=== PATIENT | male | born 1980 ===

== ENCOUNTER 2017-09-17 12:43 | Observation (INO) | payer OTHER ==
[2013-12-17 14:17] VITALS: Ht 175.3 cm; Wt 99.8 kg
[~2017-09-17] VITALS: Ht 175.3 cm; Wt 99.8 kg
[~2017-09-17 12:43] MED LIST changes: -ALB6.7R INH; -CHOL10005 PO; -FLU44R INH; -FLUO-177 PO; -FLUO40CA76 PO; -GABA-549 PO; -GABA-551 PO; -HYDR-4228 PO; -HYDR50CA47 PO; -IBUP800T37 PO; -MULT-964 PO; -NALO4SPR; -NOR25 PO; -NORT50CA40 PO; -OMEP-125 PO; -PANT40SU3 PO; -PER; -PRAZ1CAP26 PO; -SENN-203 PO; -SUMA100T33 PO; -TRAM-627 PO; -TRAZ50TA34 PO; -VERA180T53 PO; -[UNRECOGNIZED DRUG - CODE] TP
[2017-09-17] MEDS ORDERED: NS(*) 0.9% 1000 ML BAG 1,000 ML IV ONE (12:46)
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
[2017-09-17] MEDS ORDERED: DIPHTH/TETANUS/ACEL. PERTUSSIS IM ONE (12:50)
[2017-09-17] MEDS ORDERED: fentaNYL CITR 100 MCG/2 ML AMP IVP ONE (12:55)
--- NOTE | 2017-09-17 12:57 | EKG ---
FACILITY: [facility] [place] PATIENT NAME: TENNILLE POLLACK : [id number] MR: [id number] V: [id number] EXAM DATE: ORDERING PHYSICIAN: ABDOUL BROOKS TECHNOLOGIST: PLACIDO Test Reason : PARTIAL TRAUMA Blood Pressure : / mmHG Vent. Rate : 125 BPM Atrial Rate : 125 BPM P-R Int : 134 ms QRS Dur : 086 ms QT Int : 322 ms P-R-T Axes : 062 077 039 degrees QTc Int : 464 ms Sinus tachycardia Otherwise normal ECG No previous ECGs available Confirmed by CHANI BELTRAN ([id number]) on 09/17/2017 7:13:14 PM Referred By: RAMY Confirmed By:CHANI BELTRAN
[2017-09-17] MEDS ORDERED: LORazepam 2 MG/ML VIAL IVP ONE (13:00)
[2017-09-17 13:04] LABS: PLATELET COUNT, AUTOMATED 402 K/uL (150-450)
[2017-09-17 13:08] LABS: INR 1.03
[2017-09-17] MEDS ORDERED: WATER STERILE 10 ML VIAL IM ONLY ONE (13:10)
[2017-09-17] MEDS ORDERED: NS 0.9% 25 ML BAG 50 ML ONE (13:10)
[2017-09-17] MEDS ORDERED: IOPAMIDOL 76% 100 ML INFUS BTL 0 ML ONE (13:10)
[2017-09-17] MEDS ORDERED: OLANZapine 10 MG VIAL IM ONLY ONE (13:10)
[2017-09-17] MEDS ORDERED: IOPAMIDOL 76% 75 ML INFUS BTL 75 ML ONE (13:13)
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
--- NOTE | 2017-09-17 14:30 | RADIOLOGY IMAGING REPORT ---
FACILITY: [facility] PATIENT NAME: Chavez Kelly : 1980 MR: [id number] V: [id number] EXAM DATE: ORDERING PHYSICIAN: ABDOUL BROOKS TECHNOLOGIST: Location: [facility] [place] Patient: Chavez Kelly : 1980 Visit/Account:[id number] Date of Sevice: 09/17/2017 EXAMINATION: Left foot radiographs 3 views HISTORY: Trauma. COMPARISON: None. FINDINGS: AP, lateral and oblique views of the left foot are obtained. Bones: No acute fracture or dislocation. Joint spaces: Negative. Hardware: None. Alignment: Normal. Soft tissues: Negative. IMPRESSION: No acute left foot fracture. Report Dictated By: Felicia Daugherty MD at 09/17/2017 2:23 PM Report E-Signed By: Felicia Daugherty MD at 09/17/2017 2:24 PM WSN:[id number]
--- NOTE | 2017-09-17 14:30 | RADIOLOGY IMAGING REPORT ---
FACILITY: [facility] [place] PATIENT NAME: Chavez Kelly : 1980 MR: [id number] V: [id number] EXAM DATE: ORDERING PHYSICIAN: ABDOUL BROOKS TECHNOLOGIST: Location: [facility] Patient: Chavez Kelly : 1980 Visit/Account:[id number] Date of Sevice: 09/17/2017 EXAMINATION: Left ankle radiographs 3 views HISTORY: Trauma. COMPARISON: None. FINDINGS: AP, lateral and oblique views of the left ankle are obtained. Bones: There is no acute fracture or dislocation. There is a corticated ossicle below the distal fib kathy. Joint spaces: Negative. Hardware: None. Alignment: Normal. Soft tissues: Negative. IMPRESSION: No acute left ankle fracture. Report Dictated By: Felicia Daugherty MD at 09/17/2017 2:24 PM Report E-Signed By: Felicia Daugherty MD at 09/17/2017 2:26 PM WSN:[id number]
--- NOTE | 2017-09-17 14:31 | RADIOLOGY IMAGING REPORT ---
[place] [facility] [place]: Chavez Kelly : 1980 MR: [id number] V: [id number] EXAM DATE: ORDERING PHYSICIAN: ABDOUL BROOKS TECHNOLOGIST: Location: Patient: Chavez Kelly : 1980 Visit/Account:[id number] Date of Sevice: 09/17/2017 EXAMINATION: Right elbow radiographs 3 views HISTORY: Trauma. COMPARISON: None. FINDINGS: AP, lateral and oblique views of the right elbow were obtained. Bones: No acute fracture or dislocation. Joint spaces: Negative. Hardware: None. Alignment: Normal. Soft tissues: Negative. Effusion: None. IMPRESSION: No acute fracture or effusion of the right elbow. Report Dictated By: Felicia Daugherty MD at 09/17/2017 2:26 PM Report E-Signed By: Felicia Daugherty MD at 09/17/2017 2:27 PM WSN:[id number]
--- NOTE | 2017-09-17 14:45 | RADIOLOGY IMAGING REPORT ---
FACILITY: [facility] [place] PATIENT NAME: Chavez Kelly : 1980 MR: [id number] V: [id number] EXAM DATE: ORDERING PHYSICIAN: ABDOUL BROOKS TECHNOLOGIST: Location: [facility] Patient: Chavez Kelly : 1980 Visit/Account:[id number] Date of Sevice: 09/17/2017 EXAMINATION: CT chest with IV contrast CT abdomen with IV contrast CT pelvis with IV contrast HISTORY: Trauma. TECHNIQUE: Spiral scan was obtained through the chest, abdomen and pelvis during injection of nonio annie iodinated intravenous contrast. Sagittal and coronal reformatted images are also submitted. One of the following dose optimization techniques was utilized in the performance of this exam: Autom ated exposure control; adjustment of the mA and/or kV according to the patient's size; or use of an i terative reconstruction technique. Specific details can be referenced in the facility's radiology C T exam operational policy. CONTRAST: 100 mL of IV Isovue-370. COMPARISON: None. FINDINGS: CT THORAX: Lungs / pleura: Lungs show no consolidation, pleural effusion or pneumothorax. No discrete nodule fo rosendo interstitial opacity. Airways are clear. Mediastinum / debbie: No abnormal density or enlarged lymph nodes. Heart / pericardium: Normal size without pericardial effusion. Vessels: Aorta shows no aneurysm or dissection. The pulmonary arteries are grossly normal. Musculoskeletal / Body wall: Bony structures show no acute fracture. No discrete or displaced rib fr actures. Vertebral bodies show no compression. Sternum is intact. No aggressive bony lesion. The ches t wall shows no enlarged axillary lymph nodes or masses. CT ABDOMEN AND PELVIS: Liver / biliary: No focal abnormality or perihepatic fluid. Gallbladder and biliary system is unremar kable. Pancreas: Negative. Spleen: No focal abnormality or perisplenic fluid. Adrenal glands: Negative. Kidneys: No stones or hydronephrosis. The superior aspect the right kidney does show a 1.3 cm hypoden se lesion with Hounsfield of 37. Kidneys show no other focal abnormality. Pelvic structures: Negative. Bowel: Visualized gastrointestinal tract is within normal limits. The appendix is not visualized may been surgically removed. Stomach is unremarkable. Peritoneum / retroperitoneum / mesenteries: No free air, free fluid, fluid collections or areas of in flammation. Small umbilical hernia containing fat. Vessels: Negative. Musculoskeletal / Body wall: No fractures or aggressive bony lesions. Lymph node assessment: Negative. IMPRESSION: 1. No indication of acute abnormality or traumatic injury to the chest, abdomen or pelvis. 2. The superior aspect the right kidney does show 1.3 cm hypodense lesion which does not appear to be a simple cyst. Suggest a nonemergent follow-up MRI of the kidneys, without and with contrast, for fu rther evaluation as this is indeterminant and to exclude a solid renal lesion. Report Dictated By: Bartolome Andrade at 09/17/2017 2:29 PM Report E-Signed By: Bartolome Andrade at 09/17/2017 2:41 PM WSN:[id number]
--- NOTE | 2017-09-17 15:04 | RADIOLOGY IMAGING REPORT ---
FACILITY: [facility] PATIENT NAME: Chavez Kelly : 1980 MR: [id number] V: [id number] EXAM DATE: ORDERING PHYSICIAN: ABDOUL BROOKS TECHNOLOGIST: Location: [facility] [place] Patient: Chavez Kelly : 1980 Visit/Account:[id number] Date of Sevice: 09/17/2017 CHEST SINGLE AP Indication: Trauma.. Comparison: 05/19/2008. Findings: Cardiomediastinal silhouette and pulmonary vessels within normal limits. There is no focal infiltrate or lobar consolidation. No pneumothorax or pleural effusion. No nodule. Upper abdomen is unremarkable. No acute bony abnormality. IMPRESSION: 1. No acute cardiopulmonary process. No indication of thoracic trauma. Report Dictated By: Bartolome Andrade at 09/17/2017 2:58 PM Report E-Signed By: Bartolome Andrade at 09/17/2017 3:00 PM WSN:[id number]
[2017-09-17] MEDS ORDERED: ONDANSETRON 4 MG/2 ML VIAL IVP PRN (15:20)
[2017-09-17] MEDS ORDERED: NS(*) 0.9% 1000 ML BAG 1,000 ML IV PRN (15:20)
[2017-09-17 15:32] VITALS: BP 120/72
[2017-09-17] MEDS ORDERED: NALO4SPR (16:37)
[2017-09-17] MEDS ORDERED: NORT50CA40 PO (16:37)
[2017-09-17] MEDS ORDERED: [UNRECOGNIZED DRUG - CODE] TP (16:37)
[2017-09-17] MEDS ORDERED: GABA-551 PO ×2 (16:37)
[2017-09-17] MEDS ORDERED: VERA180T53 PO (16:37)
[2017-09-17] MEDS ORDERED: PRAZ1CAP26 PO (16:37)
[2017-09-17] MEDS ORDERED: MULT-964 PO (16:37)
[2017-09-17] MEDS ORDERED: SUMA100T33 PO (16:37)
[2017-09-17] MEDS ORDERED: IBUP800T37 PO (16:37)
[2017-09-17] MEDS ORDERED: SENN-203 PO (16:37)
[2017-09-17] MEDS ORDERED: TRAZ50TA34 PO (16:37)
[2017-09-17] MEDS ORDERED: FLUO-177 PO (16:37)
[2017-09-17] MEDS ORDERED: HYDR-4228 PO (16:37)
[2017-09-17] MEDS ORDERED: CHOL10005 PO (16:37)
[2017-09-17] MEDS ORDERED: OMEP-125 PO (16:37)
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
[2017-09-17] MEDS ORDERED: ACETAMINOPHEN 325 MG TAB PO PRN (17:55)
[2017-09-17] MEDS ORDERED: PROMETHAZINE 25 MG/ML 1 ML AMP IVP PRN (17:55)
[2017-09-17] MEDS ORDERED: FLUSH 10 ML SYR IVP PRN (17:55)
[2017-09-17] MEDS ORDERED: IBUPROFEN 600 MG TAB PO PRN (17:55)
[2017-09-17] MEDS ORDERED: MAGNESIUM HYDROXIDE* 30ML UDCP PO PRN (17:55)
[2017-09-17] MEDS ORDERED: hydrOXYzine 25 MG TAB PO PRN (18:00)
[2017-09-17] MEDS ORDERED: SUMAtriptan SUCC 25MG TAB PO PRN (18:00)
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
[2017-09-17] MEDS: HYDROmorphone HCL 2 MG/ML SDV IVP PRN (18:22)
[2017-09-17 19:07] VITALS: BP 123/62
[2017-09-17] MEDS ORDERED: GABAPENTIN 300 MG CAP PO SCH (21:00)
[2017-09-17] MEDS ORDERED: PRAZOSIN HCL 1 MG CAP PO PRN (21:00)
[2017-09-17] MEDS ORDERED: NORTRIPTYLINE HCL 25 MG CAP PO SCH (21:00)
[2017-09-17] MEDS: HYDROCORTISONE TP SCH (21:00)
[2017-09-17] MEDS: DOCUSATE SODIUM 100 MG CAP PO SCH (21:00)
[2017-09-17] MEDS ORDERED: traZODone HCL 50 MG TAB PO SCH (21:00)
[2017-09-17] MEDS: SENNOSIDES 8.6 MG TAB PO SCH (21:28)
[2017-09-17] MEDS: FAMOTIDINE 20 MG TAB PO SCH (21:29)
[2017-09-17 23:24] VITALS: BP 123/65
[2017-09-18 02:26] VITALS: BP 122/67
[2017-09-18 08:07] VITALS: BP 126/88
--- NOTE | 2017-09-18 08:16 | Short(Outpt) Discharge Summary ---
Discharge Summary Reason for Hosp/Final Diag: (1) Chest wall trauma Status: Acute Hospital Course & Plan: 09/17/17: X-rays and CT chest/abd/pelvis reviewed. No signs of acute trauma on any of these studies. His pain is due to external soft tissue trauma/contusion. Will observe on Med/Surg overnight with plans for transfer to [facility] in am. Will have him on 1:1. Regular diet, pain meds, nausea meds, pepcid for GI prophylaxis, hold on lovenox as DVT/PE risk is low and he will be ambulatory, will use SCDs for VTE prophylaxis. Will start bowel regimen. 09/18/17: NO issues overnight. He had a bowel movement overnight. He reports that it required some straining so will keep him on a bowel regimen. Exam is unremarkable, no other injuries detected. Will d/c from Med/Surg and transfer him to [facility] for the rest of his mental health hold due to suicidal ideation. No other recommendations for [facility] other than bowel regimen. He can eat as desired and perform all activities without restrictions. (2) Contusion of left ankle or foot Status: Acute Departure Discharge to: [facility] Discharge Instructions Home Meds Reported Medications Hydrocortisone (HYDRO SKIN) 118 Ml Lotion, 118 ML TP BID for RASH 09/17/17 Ibuprofen (IBUPROFEN) 800 Mg Tablet, 1 TAB PO QID Y for PAIN, TAB 09/17/17 Fluoxetine Hcl (FLUOXETINE HCL) 20 Mg Capsule, 2 CAP PO QDAY, CAPSULE 09/17/17 Verapamil Hcl (VERAPAMIL ER) 180 Mg Tablet.er, 180 MG PO DAILY 09/17/17 Sennosides (SENNOSIDES) 8.6 Mg Tablet, 8.6 MG PO BID 09/17/17 Omeprazole (OMEPRAZOLE) 20 Mg Capsule.dr, 1 CAP PO QDAY, CAP 09/17/17 Sumatriptan Succinate (SUMATRIPTAN SUCCINATE) 100 Mg Tablet, 100 MG PO BID Y for MIGRAINE No more than 2 doses in a 7 day period 09/17/17 Multivitamin With Minerals (MULTIVITAMINS WITH MINERALS) 1 Each Tablet, 1 EACH PO QDAY 09/17/17 Hydroxyzine Hcl (HYDROXYZINE HCL) 50 Mg Tablet, 50 MG PO TID Y for ANXIETY 09/17/17 Cholecalciferol (Vitamin D3) (VITAMIN D3) 1,000 Unit Tablet, 1000 UNIT PO, TAB Takes with food 09/17/17 Prazosin Hcl (PRAZOSIN HCL) 1 Mg Capsule, 3 CAP PO for nightmares, CAPSULE 09/17/17 Trazodone Hcl (TRAZODONE HCL) 50 Mg Tablet, 150 MG PO QHS 09/17/17 Nortriptyline Hcl (NORTRIPTYLINE HCL) 50 Mg Capsule, 50 MG PO HS, CAPSULE 09/17/17 Gabapentin (GABAPENTIN) 400 Mg Capsule, 1200 MG PO QHS, CAPSULE 09/17/17 Gabapentin (GABAPENTIN) 400 Mg Capsule, 400 MG PO QAM, CAPSULE 09/17/17 Naloxone HCl (Narcan) 4 Mg/Actuation [place] 09/17/17 Diet: Regular Activity: As Tolerated CHANI CHONG MD Sep 18, 2017 08:16
[2017-09-18] MEDS: DOCUSATE SODIUM 100 MG CAP PO SCH (08:27)
[2017-09-18] MEDS: FAMOTIDINE 20 MG TAB PO SCH (08:27)
[2017-09-18] MEDS: SENNOSIDES 8.6 MG TAB PO SCH (08:27)
[2017-09-18] MEDS: HYDROCORTISONE TP SCH (08:29)
[2017-09-18] MEDS ORDERED: NON-FORMULARY MEDICATION MISCELL (Gabapentin 400 MG) PO SCH (09:00)
[2017-09-18] MEDS ORDERED: VERAPAMIL HCL SR 180 MG TABCR PO SCH (09:00)
[2017-09-18] MEDS ORDERED: GABAPENTIN(*) 300 MG CAP 300 MG, GABAPENTIN(*) 100 MG CAP 100 MG PO SCH (09:00)
[2017-09-18] MEDS ORDERED: FLUoxetine HCL 20 MG CAP PO SCH (09:00)
[2017-09-18] MEDS ORDERED: MULTIVITAMINS TAB PO SCH (09:00)
[2017-09-18] MEDS ORDERED: CHOLECALCIFEROL 1000 UNIT TAB PO SCH (09:00)
[2017-09-18] MEDS ORDERED: POLYETHYLENE GLYCOL 17 GM PKT PO SCH (09:00)
[2017-09-18 11:28] VITALS: BP 127/78
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
[2017-09-18] MEDS: HYDROmorphone HCL 2 MG/ML SDV IVP PRN (11:56)
== END 2017-09-18 13:20 ==
LOC: ER 12:48 → MED 14:34 → INTOOBSV 14:34
PROVIDERS: ADMIT Surgery; ATTEND Surgery
DX: S50.311A Abrasion of right elbow, initial encounter (principal); S80.212A Abrasion, left knee, initial encounter; S80.211A Abrasion, right knee, initial encounter; R45.851 Suicidal ideations; S29.9XXA Unspecified injury of thorax, initial encounter; Y04.8XXA Assault by other bodily force, initial encounter; S90.02XA Contusion of left ankle, initial encounter
CPT/HCPCS: 36415; 71045; 71260; 73080; 73610; 73630; 74177; 80305; 80320; 80329; 81001; 82550; 83605; 83690; 85025; 85610; 85730; 86850; 86900; 86901; 90471; 90715; 93005; 96372; 96374; 96375; 99284; A4216; G0378; J1170; J2060; J3010; J3490; J7030; Q9967; 82040; 82247; 82310; 82374; 82435; 82565; 82947; 84075; 84132; 84155; 84295; 84450; 84460; 84520

== ENCOUNTER → 2017-09-17 | Outpatient (CLI) | payer OTHER ==
[2013-12-17 14:17] VITALS: BMI 31.8
[~2017-09-17] MED LIST: ALB6.7R INH; ASCO-180 PO; CHOL10005 PO; CLO5 PO; DIPH-466 PO; FLU44R INH; FLUO-177 PO; FLUO40CA76 PO; GABA-549 PO; GABA-551 PO; HYDR-4228 PO; HYDR50CA47 PO; IBU600 PO; IBUP800T37 PO; LORA-639 PO; MULT-964 PO; NALO4SPR; NO RTN MEDS; NOR25 PO; NORT50CA40 PO; OMEP-125 PO; PANT40SU3 PO; PER; PER PO; PRAZ1CAP26 PO; SENN-203 PO; SUMA100T33 PO; TOBROD OP; TRAM-627 PO; TRAZ50TA34 PO; VERA180T53 PO; ZINC30CA2 PO; [UNRECOGNIZED DRUG - CODE] TP; [UNRECOGNIZED DRUG - OTHER]
== END ==
LOC: AMB 12:12
PROVIDERS: ATTEND Nurse Practitioner
DX: R07.1 Chest pain on breathing (principal); R45.851 Suicidal ideations; Y04.0XXA Assault by unarmed brawl or fight, initial encounter; Y92.039 Unspecified place in apartment as the place of occurrence of the external cause
CPT/HCPCS: A0425; A0427

== ENCOUNTER 2017-09-18 13:30 | Inpatient (IN) | payer OTHER ==
[2013-12-17 14:17] VITALS: Ht 182.9 cm; Wt 99.8 kg
[~2017-09-18] VITALS: Ht 182.9 cm; Wt 99.8 kg
[~2017-09-18 13:30] MED LIST changes: +CHOL10005 PO; +FLUO-177 PO; +GABA-551 PO; +HYDR-4228 PO; +IBUP800T37 PO; +MULT-964 PO; +NALO4SPR; +NORT50CA40 PO; +OMEP-125 PO; +PRAZ1CAP26 PO; +SENN-203 PO; +SUMA100T33 PO; +TRAZ50TA34 PO; +VERA180T53 PO; +[UNRECOGNIZED DRUG - CODE] TP
[2017-09-18 13:57] VITALS: BP 131/80
[2017-09-18] MEDS ORDERED: hydrOXYzine PAMOATE 25 MG CAP PO PRN (14:15)
[2017-09-18] MEDS ORDERED: ACETAMINOPHEN 325 MG TAB PO PRN ×2 (14:15→15:10)
[2017-09-18] MEDS ORDERED: SUMAtriptan SUCC 25MG TAB PO PRN (14:20)
[2017-09-18] MEDS ORDERED: PRAZOSIN HCL 1 MG CAP PO PRN (14:20)
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
[2017-09-18] MEDS ORDERED: ALBUTEROL 2.5 MG/3 ML NEB NEB PRN (14:50)
[2017-09-18] MEDS: traMADol 50 MG TAB PO PRN ×2 (17:29→23:27)
[2017-09-18] MEDS: ALBUTEROL 2.5 MG/3 ML NEB NEB SCH (17:37)
[2017-09-18] MEDS: FLUTICASONE PROP 44 MCG INH INH SCH (17:37)
--- NOTE | 2017-09-18 19:19 | RADIOLOGY IMAGING REPORT ---
FACILITY: [facility] PATIENT NAME: Chavez Kelly : 1980 MR: [id number] V: [id number] EXAM DATE: ORDERING PHYSICIAN: CAITLYN POLANCO TECHNOLOGIST: Location: [facility] [place] Patient: Chavez Kelly : 1980 Visit/Account:[id number] Date of Sevice: 09/18/2017 ANKLE 3 VIEW MIN LEFT, FOOT 3 VIEW LEFT History: Left foot and ankle pain. Comparison study: None. Findings: Left foot: There is no fracture involving the left foot. The metatarsals are intact. Left ankle: There is soft tissue swelling over the left ankle. There is no finding of an acute fractu re. The talar dome is intact. A well-corticated density inferior to the fibula could be related to pr ior injury. There is developmental variation of the navicular bone. IMPRESSION: 1. No findings of a fracture. 2. Soft tissue stone over the lateral malleolus. There are well-corticated densities inferior to the fibula that are likely the result of a previous injury. Report Dictated By: August Carter MD at 09/18/2017 7:14 PM Report E-Signed By: August Carter MD at 09/18/2017 7:15 PM [id number]
--- NOTE | 2017-09-18 19:19 | RADIOLOGY IMAGING REPORT ---
FACILITY: [facility] [place] PATIENT NAME: Chavez Kelly : 1980 MR: [id number] V: [id number] EXAM DATE: ORDERING PHYSICIAN: CAITLYN POLANCO TECHNOLOGIST: Location: [facility] [place], [place] Patient: Chavez Kelly : 1980 Visit/Account:[id number] Date of Sevice: 09/18/2017 ANKLE 3 VIEW MIN LEFT, FOOT 3 VIEW LEFT History: Left foot and ankle pain. Comparison study: None. Findings: Left foot: There is no fracture involving the left foot. The metatarsals are intact. Left ankle: There is soft tissue swelling over the left ankle. There is no finding of an acute fractu re. The talar dome is intact. A well-corticated density inferior to the fibula could be related to pr ior injury. There is developmental variation of the navicular bone. IMPRESSION: 1. No findings of a fracture. 2. Soft tissue stone over the lateral malleolus. There are well-corticated densities inferior to the fibula that are likely the result of a previous injury. Report Dictated By: August Carter MD at 09/18/2017 7:14 PM Report E-Signed By: August Carter MD at 09/18/2017 7:15 PM [id number]
[2017-09-18] MEDS ORDERED: traMADol 50 MG TAB PO SCH (21:00)
[2017-09-18] MEDS: HYDROCORTISONE 1% CR 28.35 GM TP SCH (21:26)
[2017-09-18] MEDS: NORTRIPTYLINE HCL 25 MG CAP PO SCH (21:27)
[2017-09-18] MEDS: GABAPENTIN 300 MG CAP PO SCH (21:27)
[2017-09-18] MEDS: traZODone HCL 50 MG TAB PO SCH (21:28)
[2017-09-18] MEDS: SENNOSIDES 8.6 MG TAB PO SCH (21:28)
[2017-09-19] MEDS: traMADol 50 MG TAB PO PRN ×2 (05:29→20:51)
[2017-09-19] MEDS: FLUTICASONE PROP 44 MCG INH INH SCH ×2 (05:36→17:36)
[2017-09-19] MEDS: ALBUTEROL 2.5 MG/3 ML NEB NEB SCH (05:36)
[2017-09-19 05:40] VITALS: BP 121/74
[2017-09-19] MEDS: CHOLECALCIFEROL 1000 UNIT TAB PO SCH (08:24)
[2017-09-19] MEDS: VERAPAMIL HCL SR 180 MG TABCR PO SCH (08:24)
[2017-09-19] MEDS: SENNOSIDES 8.6 MG TAB PO SCH ×2 (08:25→20:52)
[2017-09-19] MEDS: PANTOPRAZOLE SOD 40 MG TABEC PO SCH (08:25)
[2017-09-19] MEDS: MULTIVITAMINS PO SCH (08:25)
[2017-09-19] MEDS ORDERED: GABAPENTIN 300 MG CAP PO SCH (09:00)
[2017-09-19] MEDS ORDERED: FLUoxetine HCL 20 MG CAP PO SCH ×2 (09:00→10:00)
[2017-09-19] MEDS: HYDROCORTISONE 1% CR 28.35 GM TP SCH ×2 (09:00→20:50)
[2017-09-19] MEDS ORDERED: GABAPENTIN 100 MG CAP PO ONE (09:10)
[2017-09-19] MEDS ORDERED: GABAPENTIN 300 MG CAP PO ONE (09:25)
[2017-09-19] MEDS ORDERED: GABAPENTIN PO ONE (10:05)
[2017-09-19] MEDS ORDERED: FLUoxetine HCL 20 MG CAP PO ONE (10:05)
[2017-09-19 10:21] VITALS: BP 138/75
[2017-09-19] MEDS: IBUPROFEN 600 MG TAB PO PRN (14:53)
[2017-09-19 16:34] VITALS: BP 133/72
[2017-09-19] MEDS: GABAPENTIN 300 MG CAP PO SCH (20:50)
[2017-09-19] MEDS: NORTRIPTYLINE HCL 25 MG CAP PO SCH (20:51)
[2017-09-19] MEDS: traZODone HCL 50 MG TAB PO SCH (20:52)
[2017-09-19] MEDS: MAG HYD/AL HYD/SIMETH 30ML UDC PO PRN (22:32)
[2017-09-20] MEDS: FLUTICASONE PROP 44 MCG INH INH SCH ×2 (05:31→17:52)
[2017-09-20 05:46] VITALS: BP 127/67
[2017-09-20] MEDS: HYDROCORTISONE 1% CR 28.35 GM TP SCH (08:19)
[2017-09-20] MEDS: VERAPAMIL HCL SR 180 MG TABCR PO SCH (08:20)
[2017-09-20] MEDS: PANTOPRAZOLE SOD 40 MG TABEC PO SCH (08:20)
[2017-09-20] MEDS: SENNOSIDES 8.6 MG TAB PO SCH (08:21)
[2017-09-20] MEDS: MULTIVITAMINS PO SCH (08:21)
[2017-09-20] MEDS: CHOLECALCIFEROL 1000 UNIT TAB PO SCH (08:21)
[2017-09-20 08:47] VITALS: BP 138/85
[2017-09-20] MEDS ORDERED: GABAPENTIN 300 MG CAP PO SCH ×2 (09:00)
[2017-09-20] MEDS ORDERED: GABAPENTIN PO SCH (09:00)
[2017-09-20] MEDS ORDERED: FLUoxetine HCL 20 MG CAP PO SCH (09:00)
[2017-09-20] MEDS ORDERED: GABAPENTIN(*) 100 MG CAP 100 MG, GABAPENTIN(*) 300 MG CAP 300 MG PO SCH (09:00)
[2017-09-20] MEDS: traMADol 50 MG TAB PO PRN (10:54)
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
[2017-09-20] MEDS: MAG HYD/AL HYD/SIMETH 30ML UDC PO PRN (13:44)
[2017-09-20] MEDS: IBUPROFEN 600 MG TAB PO PRN (13:44)
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
[2017-09-20] MEDS ORDERED: FLUO40CA76 PO (15:25)
[2017-09-20] MEDS ORDERED: GABA-549 PO ×2 (15:27→15:30)
[2017-09-20] MEDS ORDERED: NOR25 PO ×2 (15:32→15:43)
[2017-09-20] MEDS ORDERED: NORT50CA40 PO ×3 (15:37→15:40)
[2017-09-20] MEDS ORDERED: PANT40SU3 PO (15:51)
[2017-09-20] MEDS ORDERED: PER (15:53)
[2017-09-20] MEDS ORDERED: TRAM-627 PO (15:54)
[2017-09-20] MEDS ORDERED: HYDR50CA47 PO (15:55)
[2017-09-20] MEDS ORDERED: FLU44R INH ×2 (17:48→17:53)
[2017-09-20] MEDS ORDERED: ALB6.7R INH (17:55)
[2017-09-20 18:37] VITALS: BP 123/83
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
== END 2017-09-20 18:59 | DRG 885 ==
LOC: BHS 13:30
PROVIDERS: ADMIT Psychiatry & Neurology Psychiatry; ATTEND Psychiatry & Neurology Psychiatry
DX: F33.2 Major depressive disorder, recurrent severe without psychotic features (principal); R45.851 Suicidal ideations; F43.21 Adjustment disorder with depressed mood; G47.30 Sleep apnea, unspecified; F10.21 Alcohol dependence, in remission; J45.909 Unspecified asthma, uncomplicated; F43.12 Post-traumatic stress disorder, chronic; S20.219A Contusion of unspecified front wall of thorax, initial encounter; Y04.0XXA Assault by unarmed brawl or fight, initial encounter; Z81.1 Family history of alcohol abuse and dependence; Z81.8 Family history of other mental and behavioral disorders
CPT/HCPCS: 94640; 94660; 97161; J7613

== ENCOUNTER → 2017-09-20 | Outpatient (CLI) | payer OTHER ==
[2013-12-17 14:17] VITALS: BMI 31.8
[~2017-09-20] MED LIST changes: +ALB6.7R INH; +FLU44R INH; +FLUO40CA76 PO; +GABA-549 PO; +HYDR50CA47 PO; +NOR25 PO; +PANT40SU3 PO; +PER; +TRAM-627 PO
== END ==
LOC: AMB 18:33
PROVIDERS: ATTEND Nurse Practitioner
DX: R45.851 Suicidal ideations (principal)